=== PATIENT | female | born 1965 | race Caucasian/White ===

== ENCOUNTER 2017-11-08 15:16 | Day surgery (SDC) | payer OTHER ==
[~2017-11-08 15:16] MED LIST: CEFAZOLIN 2 GM/50 ML (PMX) 50 ML IVPB
[2017-11-08] MEDS: LACTATED RINGER'S 1,000 ML IV* (16:56)
[2017-11-08] MEDS ORDERED: LIDOCAINE 1% (MPF) 30 ML INJ (18:04)
[2017-11-08] MEDS ORDERED: BUPIVACAINE 0.5% (SDV) 30 ML INJ (18:04)
[2017-11-08] MEDS ORDERED: POLYMYXIN/BACITRACIN 1L IRRIG (18:04)
[2017-11-08] MEDS ORDERED: PROPOFOL 20 ML (18:17)
[2017-11-08] MEDS ORDERED: CEFAZOLIN 1 GM INJ (18:17)
[2017-11-08] MEDS ORDERED: GLYCOPYRROLATE 0.4 MG INJ (18:17)
[2017-11-08] MEDS ORDERED: NEOSTIGMINE 3 MG/3 ML SYRINGE (18:17)
[2017-11-08] MEDS ORDERED: ROCURONIUM 50 MG INJ (18:17)
[2017-11-08] MEDS ORDERED: FENTAnyl 50 MCG/ML VIAL (18:18)
[2017-11-08] MEDS ORDERED: MIDAZOLAM 1 MG/ML 2 ML INJ (18:18)
[2017-11-08] MEDS ORDERED: DEXAMETHASONE 4 MG/ML 1 ML INJ (18:18)
[2017-11-08] MEDS ORDERED: ONDANSETRON 4 MG INJ (18:18)
[2017-11-08] MEDS ORDERED: ROPIVACAINE 0.5 % 30 ML VIAL (18:22)
[2017-11-08] MEDS ORDERED: morphine (1 MG/ML) 10ML SYRINGE IV (20:30)
[2017-11-08] MEDS ORDERED: ONDANSETRON 4 MG INJ IV (20:30)
[2017-11-08] MEDS ORDERED: HYDROmorphONE 1 MG/5 ML IV SYRINGE IV ×3 (20:30)
[2017-11-08] MEDS ORDERED: MIDAZOLAM 1 MG/ML 2 ML INJ IV (20:30)
[2017-11-08] MEDS ORDERED: FENTAnyl 50 MCG/ML VIAL IV ×3 (20:30)
[2017-11-08] MEDS ORDERED: ALBUTEROL 0.083% (NEB) 2.5 MG/3 ML AMP HHN (20:30)
[2017-11-08] MEDS ORDERED: OXYCODONE/ACETAMINOPHEN (5/325) TAB PO ×2 (20:30)
[2017-11-08] MEDS ORDERED: RACEPINEPHRINE 2.25%(NEB) 0.5 ML AMP HHN (20:30)
[2017-11-08] MEDS ORDERED: DIPHENHYDRAMINE 50 MG INJ IV (20:30)
[2017-11-08] MEDS ORDERED: KETOROLAC 30 MG INJ IV (20:30)
[2017-11-08] MEDS ORDERED: MEPERIDINE 25 MG INJ IV (20:30)
== END 2017-11-08 20:55 | disposition home or self-care (01) ==
LOC: SDS 15:16
DX: M67.432 Ganglion, left wrist (principal); M19.042 Primary osteoarthritis, left hand; G56.02 Carpal tunnel syndrome, left upper limb; E78.5 Hyperlipidemia, unspecified; I10 Essential (primary) hypertension; F17.200 Nicotine dependence, unspecified, uncomplicated
CPT/HCPCS: 25111; 73130-LT

== ENCOUNTER 2017-11-27 09:46 | Day surgery (SDC) | payer OTHER ==
[2017-11-27] MEDS ORDERED: PROPOFOL 40 ML (10:45)
== END 2017-11-27 14:51 | disposition home or self-care (01) ==
LOC: GIL 09:46
DX: Z12.11 Encounter for screening for malignant neoplasm of colon (principal); K64.8 Other hemorrhoids
CPT/HCPCS: 45378

== ENCOUNTER → 2018-09-05 | Day surgery (SDC) | payer OTHER ==
[~2018-09-05] MED LIST changes: +BUPIVACAINE 0.5% (SDV) 30 ML INJ; +CEFAZOLIN 1 GM INJ; +DEXAMETHASONE 4 MG/ML 5 ML INJ; +EPHEDrine 25 MG/5 ML SYG IV; +FENTAnyl 50 MCG/ML VIAL; +FENTAnyl 50 MCG/ML VIAL IV; +HYDROmorphONE 1 MG/5 ML IV SYRINGE IV; +KETOROLAC 30 MG INJ; +LABETALOL HCL 20MG INJ IV; +LACTATED RINGER'S 1,000 ML IV; +METOCLOPRAMIDE 10 MG INJ; +MIDAZOLAM 1 MG/ML 2 ML INJ; +ONDANSETRON 4 MG INJ; +PROPOFOL 20 ML; +ROPIVACAINE 0.5 % 30 ML VIAL; +SUGAMMADEX SODIUM 200 MG/2 ML VIAL IV
[2018-09-05] MEDS: POLYMYXIN/BACITRACIN 1L IRRIG (17:32)
[2018-09-05] MEDS: ONDANSETRON 4 MG INJ IV (17:55)
[2018-09-05] MEDS: HYDROmorphONE 1 MG/5 ML IV SYRINGE IV ×2 (17:56→18:14)
[2018-09-05] MEDS: FENTAnyl 50 MCG/ML VIAL IV (18:25)
== END | disposition home or self-care (01) ==
LOC: SDS 13:43
DX: M19.041 Primary osteoarthritis, right hand (principal); G56.01 Carpal tunnel syndrome, right upper limb; I10 Essential (primary) hypertension; F41.8 Other specified anxiety disorders
CPT/HCPCS: 26860; 73130-RT